=== PATIENT | male | born 1975 | race African-American/Black ===

== ENCOUNTER 2023-10-19 06:50 | Emergency (ER) | payer OTHER ==
[2023-10-19 06:58] VITALS: RESP 20; TEMP 98.2; BMI 22.4
[2023-10-19] MEDS ORDERED: MORPHINE SULFATE 2 MG/ML SYRINGE ONE (07:47)
[2023-10-19] MEDS ORDERED: levETIRAcetam 500 MG/5 ML INJECTION VIAL IVPB ONE (07:47)
[2023-10-19] MEDS ORDERED: ACETAMINOPHEN INJECTION 100 ML IVPB ONE (07:48)
[2023-10-19] MEDS ORDERED: ONDANSETRON 4 MG/2 ML VIAL ONE (07:48)
[2023-10-19] MEDS: morphine CARPU-JECT 2 MG/1 ML DISP.SYRIN IVPUSH ONE (08:05)
[2023-10-19] MEDS: ONDANSETRON 4 MG/2 ML VIAL IVPUSH ONE (08:05)
[2023-10-19] MEDS: levETIRAcetam 500 MG/5 ML INJECTION VIAL IVPB ONE (08:10)
[2023-10-19] MEDS: LACTATED RINGERS SOLUTION 1000 ML INFUS.BAG IV ONE (08:15)
[2023-10-19] MEDS: ACETAMINOPHEN 1000 MG/100 ML BAG IVPB ONE (08:15)
[2023-10-19 08:18] LABS: VENOUS PCO2 47.4 mmHg (38-52); VENOUS PH 7.344 (7.310-7.410)
[2023-10-19 08:28] LABS: BASO % 1.2 % (0-2.0); EOS % 3.4 % (0-4.5); HEMATOCRIT 41.8 % (35.4-49); HEMOGLOBIN 14.2 GM/dL (11.7-16.9); LYMPH % 21.9 % (8-40); MCH 33.2 pg (25.7-33.7); MCHC 33.9 g/dl (32.0-35.9); MEAN CELL VOLUME 97.9 fl (80-96); MEAN PLT VOLUME 8.2 fl (7.5-11.1); MONO % 11.5 % (3.8-10.2); PLATELET COUNT 175 10^3/uL (134-434); RBC 4.27 M/mm3 (4.00-5.60); RDW 13.2 % (11.9-15.9); WHITE BLOOD COUNT 4.7 K/mm3 (4.0-10.0)
[2023-10-19 08:35] LABS: INR 0.9 (0.83-1.09); PROTHROMBIN TIME (PATIENT) 10.2 SEC (9.7-13.0)
[2023-10-19 08:38] LABS: ACTIVATED PTT 30.5 SECONDS (25.2-36.5)
[2023-10-19 08:43] LABS: POTASSIUM 4.2 mmol/L (3.5-5.1)
[2023-10-19 08:45] LABS: BLOOD UREA NITROGEN 13.2 mg/dL (7-18); CALCIUM 9.5 mg/dL (8.5-10.1)
[2023-10-19 08:46] LABS: ALBUMIN 4.5 g/dl (3.4-5.0); MAGNESIUM 2.4 mg/dL (1.8-2.4)
[2023-10-19 08:48] LABS: CREATININE 0.9 mg/dL (0.55-1.3)
[2023-10-19 08:50] LABS: TOT PROT 7.6 g/dl (6.4-8.2)
[2023-10-19 08:51] LABS: LACTIC ACID 2.1 mmol/L (0.4-2.0)
[2023-10-19] MEDS: levETIRAcetam 500 MG TABLET (FP) PO ONE (08:58)
[2023-10-19] MEDS ORDERED: KETOROLAC TROMETHAMINE 15 MG/ML VIAL ONE (10:23)
[2023-10-19] MEDS: KETOROLAC TROMETHAMINE 15 MG/ML VIAL IVPUSH ONE (10:25)
[2023-10-19] MEDS: SODIUM CHLORIDE 0.9% 500 ML INFUS.BAG IV ONE ×2 (10:25→10:33)
[2023-10-19] MEDS ORDERED: diazePAM CARPU-JECT 10 MG/2 ML DISP.SYRIN ONE (10:57)
[2023-10-19 10:58] LABS: URINE APPEARANCE CLEAR; URINE BILIRUBIN NEGATIVE (NEGATIVE); URINE COLOR YELLOW; URINE GLUCOSE (UA) NEGATIVE (NEGATIVE); URINE KETONE TRACE (NEGATIVE); URINE LEUK ESTERASE NEGATIVE (NEGATIVE); URINE NITRITE NEGATIVE (NEGATIVE); URINE PROTEIN NEGATIVE (NEGATIVE)
[2023-10-19] MEDS: diazePAM CARPU-JECT 10 MG/2 ML DISP.SYRIN IVPUSH ONE (11:00)
[2023-10-19 12:15] VITALS: BP 148/96; PULSE 59
== END 2023-10-19 12:45 | disposition left against medical advice (07) ==
LOC: JER 06:50 → EDBD 06:50 → JER 12:45
PROC: 3E033NZ Introduction of Analgesics, Hypnotics, Sedatives into Peripheral Vein, Percutaneous Approach (ICD-10-PCS; principal; 2023-10-19)
PROC: 3E033NZ Introduction of Analgesics, Hypnotics, Sedatives into Peripheral Vein, Percutaneous Approach (ICD-10-PCS; 2023-10-19)
PROC: 3E0333Z Introduction of Anti-inflammatory into Peripheral Vein, Percutaneous Approach (ICD-10-PCS; 2023-10-19)
PROC: 3E033GC Introduction of Other Therapeutic Substance into Peripheral Vein, Percutaneous Approach (ICD-10-PCS; 2023-10-19)
PROC: 3E033GC Introduction of Other Therapeutic Substance into Peripheral Vein, Percutaneous Approach (ICD-10-PCS; 2023-10-19)
PROC: 3E033GC Introduction of Other Therapeutic Substance into Peripheral Vein, Percutaneous Approach (ICD-10-PCS; 2023-10-19)
DX: G40.909 Epilepsy, unspecified, not intractable, without status epilepticus (principal); M79.10 Myalgia, unspecified site; M54.2 Cervicalgia; M54.6 Pain in thoracic spine; R11.0 Nausea; Z20.822 Contact with and (suspected) exposure to COVID-19
CPT/HCPCS: 0241U-QW; 36415; 70450-TC; 70498-TC; 71045-TC-FY; 72125-TC; 72192-TC; 80053; 81003; 82550; 82553; 82803; 82962; 83605; 83735; 84484; 85025; 85610; 85730; 86850; 86900; 86901; 87086; 93005; 93010; 99285-25; J0131